=== PATIENT | male | born 1985 | race Caucasian/White ===

== ENCOUNTER 2018-09-06 18:30 | Observation (INO) | payer OTHER, SELFPAY ==
[2018-09-06] VITALS (7 sets, daily range): BP systolic 108–125; BP diastolic 65–81; PULSE 57–90; RESP 15–20; TEMP 36.6–36.7; O2SAT 97–100; BMI 31.1
--- NOTE | 2018-09-06 | PATH_ITS ---
[facility] Accession Number: [id number] . 01 Material submitted: . APPENDIX . 02 Diagnosis: Appendix: Acute appendicitis. [facility]/09/10/2018 . 02 Electronically signed: . Michael Johnson MD, Pathologist NPI- [id number] . 01 Gross description: . Received in formalin, labeled appendix, is an intact appendix (length-10.4 cm, diameter-1.0 cm) with maldonado-leyva smooth shiny serosa and attached mesoappendix (up to 2.7 cm in depth). The resection margin is received stapled. The lumen contains leyva-maldonado solid, soft material. The wall is up to 0.3 cm thick. No nodules, masses or lesions are identified. The resection margin is inked black. Section code: (A1) resection margin en face and four additional serial sections; (A2) four additional serial sections; (A3) one-half of the bivalved tip. ([id number]) /MRV . 02 Pathologist provided ICD-10: K35.80 . 02 CPT . 768698 Performed at: 01 [facility] [address] [place] [address], [place], [place] [id number] MD Rambo Victor MD Phone: [phone] Performed at: 02 [facility] [address] [place], [place] [id number] MD Belinda Quintana MD Phone: [phone]
[2018-09-06 18:52] LABS: Add Manual Diff / Slide Review NO; Basophils Absolute Auto 0 /uL (0-100); Basophils Percent Auto 0.4 % (0-2); Eosinophils Absolute Auto 100 /uL (0-450); Eosinophils Percent Auto 1.4 % (2-4); Hematocrit 47.6 % (41-53); Hemoglobin 16.3 g/dL (13.5-17.5); Lymphocytes Absolute Auto 1700 /uL (1100-4500); Mean Corpuscular HGB Conc 34.2 % (30-36); Mean Corpuscular Hemoglobin 29.7 PG (26-34); Mean Corpuscular Volume 86.7 fL (80-100); Monocytes Absolute Auto 900 /uL (0-900); Monocytes Percent Auto 8.7 % (3-14); Neutrophils Absolute Auto 7800 /uL (1500-7000); Neutrophils Percent Auto 73.5 % (50-75); Platelet Count 212 X10^3/uL (150-400); Red Blood Cell Count 5.48 X10^6/uL (4.5-5.9); Red Cell Distribution Width 12.1 % (11.6-14.8); White Blood Cell Count 10.6 X10^3/uL (4.5-11.0)
[2018-09-06 18:58] LABS: Prothrombin Time 11.2 SECONDS (10.1-12.7)
[2018-09-06 18:59] LABS: Alanine Aminotransferase 30 IU/L (21-72); Albumin 4.6 g/dL (3.5-5.0); Albumin Globulin Ratio 1.2 (1.0-2.8); Alkaline Phosphatase 62 U/L (38-126); Aspartate Aminotransferase 29 IU/L (17-59); Bilirubin Total 0.6 mg/dL (0.2-1.3); Blood Urea Nitrogen 17 mg/dL (9-20); Calcium 9.8 mg/dL (8.4-10.2); Carbon Dioxide 31 mmol/L (22-32); Chloride 101 mmol/L (98-107); Estimated Glomerular Filt Rate > 60.0 mL/min (>60); Globulin 3.8 g/dL (1.7-4.1); Glucose 100 mg/dL (70-100); HEMOLYSIS 16 (0-50); Lipase 45 U/L (23-300); Potassium 4.3 mmol/L (3.4-5.1); Sodium 141 mmol/L (137-145); Total Protein 8.4 g/dL (6.3-8.2)
[2018-09-06 19:01] LABS: PTT Partial Thromboplastin Tim 32 SECONDS (26.4-36.2)
--- NOTE | 2018-09-06 19:06 | ED.ABDPAIN ---
HPI - Abdominal Pain <Lilo Lyn PA-C - Last Filed: 09/06/18 21:32> General Chief Complaint: Abdominal Pain Stated Complaint: lower stomach pain Time Seen by Provider: 09/06/18 18:59 Source: patient Mode of arrival: ambulatory Limitations: no limitations History of Present Illness HPI narrative: This 33-year-old male comes in for evaluation of abdominal pain which started last night. He states that this started on his right side along with nausea. He vomited last night and also 4 or 5 times earlier today, no vomiting since this morning. He did eat dinner tonight and kept that down. He states nausea has improved, however pain has progressively worsened. He states he was trying to manage this at home, however when his son bumped his right lower abdomen with his foot and it caused Noah to double over, his encouraged him to come in. He states pain is worse with any movement, jarring, better with being still. He has not had any diarrhea and had a normal bowel movement today. He has not had any urinary symptoms. He has not had any recent illness, cough or respiratory symptoms. He states no fever at home but he does feel kind of warm and clammy. 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 He denies any diet change or known exposures Related Data Previous Rx's Medication Instructions Recorded fluoxetine 20 mg PO QDAY #90 cap 12/05/17 Allergies Allergy/AdvReac Type Severity Reaction Status Date / Time cat dander [CAT DANDER] Allergy Mild Verified 09/06/18 18:38 dog dander [DOG DANDER] Allergy Mild Verified 09/06/18 18:38 Review of Systems <Lilo Lyn PA-C - Last Filed: 09/06/18 21:32> Review of Systems ROS Unobtainable: All systems reviewed & are unremarkable except as noted in HPI and below Exam <PRITESH Badillo Last Filed: 09/06/18 21:32> Narrative Exam Narrative: GENERAL APPEARANCE: Patient sitting comfortably, in no distress. Skin is a bit clammy and warm HEENT: PERRL, EOMI, no scleral icterus, normal oropharynx NECK: Supple, no masses LUNGS: Clear to auscultation bilaterally. HEART: Rate and rhythm regular, normal S1 and S2, no S3 or S4. ABDOMEN: Soft, nondistended, bowel sounds present x 4 quadrants, no masses palpable, no hepatosplenomegaly. Exquisitely tender from the right lower quadrant midline to McBurney's point. He has rebound tenderness throughout these areas. Positive obturator sign. No CVAT EXTREMITIES: No edema, no cyanosis DERMATOLOGIC: No jaundice or exanthem NEUROLOGIC: Alert and oriented with normal speech and coordination Initial Vital Signs Initial Vital Signs: Vital Signs Temperature 98.1 F 09/06/18 18:38 Pulse Rate 90 09/06/18 18:38 Respiratory Rate 15 09/06/18 18:38 Blood Pressure 116/81 09/06/18 18:38 Pulse Oximetry 100 09/06/18 18:38 <James Hawkins MD - Last Filed: 09/07/18 03:43> Initial Vital Signs Initial Vital Signs: Vital Signs Temperature 98.1 F 09/06/18 18:38 Pulse Rate 90 09/06/18 18:38 Respiratory Rate 15 09/06/18 18:38 Blood Pressure 116/81 09/06/18 18:38 Pulse Oximetry 100 09/06/18 18:38 Course <Lilo Lyn PA-C - Last Filed: 09/06/18 21:32> Additional Information: I have reviewed findings with Dr. Naranjo who is on-call for surgery. He has been here to assess patient and will admit. He is coordinating surgery planned with Anesthesiology. Patient is currently feeling improved with pain medication and is resting comfortably at the time of transfer Orders Ordered: ED Orders 09/06/18 18:42 Complete Blood Count AUTO DIFF Stat Comprehensive Metabolic Panel Stat Lipase Stat Partial Thromboplastin Time Stat Prothrombin Time INR Stat 09/06/18 19:18 CT abdomen pelvis w con Stat 09/06/18 21:49 Education, smoking cessation ONGOING Acetaminophen (Tylenol) 650 mg PO Q6HR PRN PRN Reason: As Needed for Fever/Mild Pain Al Hydrox/Mg Hydrox/Simethicone (Maalox Plus) 30 ml PO Q6HR PRN PRN Reason: Dyspepsia Docusate Sodium (Colace) 100 mg PO BID [facility] Fluoxetine HCl (Prozac) 20 mg PO DAILY [facility] Last Admin: 09/07/18 00:38 Dose: Sodium Chloride (Normal Saline 0.9%) 1,000 mls @ 100 mls/hr IV CONT ROE Last Admin: 09/07/18 00:41 Dose: 100 mls/hr Magnesium Hydroxide (Milk Of Magnesia) 30 ml PO BEDTIME PRN PRN Reason: Constipation Morphine Sulfate (Morphine) 2 mg IV Q2HR PRN PRN Reason: Pain, Severe (7-10) Ondansetron HCl (Zofran) 4 mg IV Q6HR PRN PRN Reason: Nausea And Vomiting Oxycodone HCl (Percolone) 5 mg PO Q3HR PRN PRN Reason: Pain, Moderate (4-6) Sennosides (Senna) 8.6 mg PO BEDTIME ROE Discontinued Medications Bupivacaine HCl (Sensorcaine 0.5% (Pf)) 30 ml INJ NOW ONE Stop: 09/06/18 22:45 Last Admin: 09/06/18 22:45 Dose: 30 ml Hydromorphone HCl (Dilaudid) 1 mg IV NOW ONE Stop: 09/06/18 19:19 Last Admin: 09/06/18 19:57 Dose: 1 mg Sodium Chloride (Normal Saline 0.9%) 1,000 mls @ 100 mls/hr IV CONT ROE Last Infusion: 09/06/18 21:29 Dose: 0 mls/hr Admin: 09/06/18 20:24 Dose: 100 mls/hr Cefotetan Disodium/Dextrose (Cefotan) 2 gm in 50 mls @ 100 mls/hr IV NOW ONE Stop: 09/06/18 22:16 Last Infusion: 09/06/18 22:52 Dose: 0 mls/hr Admin: 09/06/18 22:51 Dose: 100 mls/hr Sodium Chloride (Normal Saline 0.9%) 1,000 mls @ 100 mls/hr IV CONT ROE Last Admin: 09/07/18 00:42 Dose: Lactated Ringer's (Lactated Ringers) 1,000 mls @ 42 mls/hr IV NOW ONE Stop: 09/07/18 21:38 Last Infusion: 09/06/18 23:41 Dose: 42 mls/hr Admin: 09/06/18 21:45 Dose: 42 mls/hr Ketorolac Tromethamine (Toradol) 30 mg IV NOW ONE Stop: 09/06/18 19:19 Last Admin: 09/06/18 19:56 Dose: 30 mg Lidocaine/Epinephrine (Xylocaine 1% W/Epi) 20 ml INJ NOW ONE Stop: 09/06/18 22:45 Last Admin: 09/06/18 22:44 Dose: 30 ml Ondansetron HCl (Zofran) 4 mg IV NOW ONE Stop: 09/06/18 19:19 Last Admin: 09/06/18 19:56 Dose: 4 mg Vital Signs - 8 hr 09/06/18 20:21 09/06/18 21:40 09/06/18 23:33 Temperature 98 F 98 F Pulse Rate 63 65 61 Respiratory Rate 16 20 16 Blood Pressure 118/71 110/65 Blood Pressure [Left Arm] 116/75 Pulse Oximetry 98 98 98 09/06/18 23:38 09/06/18 23:43 09/06/18 23:53 Temperature 98 F 98 F 97.8 F Pulse Rate 57 L 75 63 Respiratory Rate 15 17 16 Blood Pressure 115/68 108/66 125/76 Blood Pressure [Left Arm] Pulse Oximetry 98 97 98 09/07/18 00:03 09/07/18 00:14 Temperature 98 F 98.2 F Pulse Rate 63 71 Respiratory Rate 18 16 Blood Pressure 125/76 124/74 Blood Pressure [Left Arm] Pulse Oximetry 98 95 <James Hawkins MD - Last Filed: 09/07/18 03:43> Orders Ordered: ED Orders 09/06/18 18:42 Complete Blood Count AUTO DIFF Stat Comprehensive Metabolic Panel Stat Lipase Stat Partial Thromboplastin Time Stat Prothrombin Time INR Stat 09/06/18 19:18 CT abdomen pelvis w con Stat 09/06/18 21:49 Education, smoking cessation ONGOING Acetaminophen (Tylenol) 650 mg PO Q6HR PRN PRN Reason: As Needed for Fever/Mild Pain Al Hydrox/Mg Hydrox/Simethicone (Maalox Plus) 30 ml PO Q6HR PRN PRN Reason: Dyspepsia Docusate Sodium (Colace) 100 mg PO BID ROE Fluoxetine HCl (Prozac) 20 mg PO DAILY ROE Last Admin: 09/07/18 00:38 Dose: Sodium Chloride (Normal Saline 0.9%) 1,000 mls @ 100 mls/hr IV CONT ROE Last Admin: 09/07/18 00:41 Dose: 100 mls/hr Magnesium Hydroxide (Milk Of Magnesia) 30 ml PO BEDTIME PRN PRN Reason: Constipation Morphine Sulfate (Morphine) 2 mg IV Q2HR PRN PRN Reason: Pain, Severe (7-10) Ondansetron HCl (Zofran) 4 mg IV Q6HR PRN PRN Reason: Nausea And Vomiting Oxycodone HCl (Percolone) 5 mg PO Q3HR PRN PRN Reason: Pain, Moderate (4-6) Sennosides (Senna) 8.6 mg PO BEDTIME ROE Discontinued Medications Bupivacaine HCl (Sensorcaine 0.5% (Pf)) 30 ml INJ NOW ONE Stop: 09/06/18 22:45 Last Admin: 09/06/18 22:45 Dose: 30 ml Hydromorphone HCl (Dilaudid) 1 mg IV NOW ONE Stop: 09/06/18 19:19 Last Admin: 09/06/18 19:57 Dose: 1 mg Sodium Chloride (Normal Saline 0.9%) 1,000 mls @ 100 mls/hr IV CONT [facility] Last Infusion: 09/06/18 21:29 Dose: 0 mls/hr Admin: 09/06/18 20:24 Dose: 100 mls/hr Cefotetan Disodium/Dextrose (Cefotan) 2 gm in 50 mls @ 100 mls/hr IV NOW ONE Stop: 09/06/18 22:16 Last Infusion: 09/06/18 22:52 Dose: 0 mls/hr Admin: 09/06/18 22:51 Dose: 100 mls/hr Sodium Chloride (Normal Saline 0.9%) 1,000 mls @ 100 mls/hr IV CONT [facility] Last Admin: 09/07/18 00:42 Dose: Lactated Ringer's (Lactated Ringers) 1,000 mls @ 42 mls/hr IV NOW ONE Stop: 09/07/18 21:38 Last Infusion: 09/06/18 23:41 Dose: 42 mls/hr Admin: 09/06/18 21:45 Dose: 42 mls/hr Ketorolac Tromethamine (Toradol) 30 mg IV NOW ONE Stop: 09/06/18 19:19 Last Admin: 09/06/18 19:56 Dose: 30 mg Lidocaine/Epinephrine (Xylocaine 1% W/Epi) 20 ml INJ NOW ONE Stop: 09/06/18 22:45 Last Admin: 09/06/18 22:44 Dose: 30 ml Ondansetron HCl (Zofran) 4 mg IV NOW ONE Stop: 09/06/18 19:19 Last Admin: 09/06/18 19:56 Dose: 4 mg Vital Signs - 8 hr 09/06/18 20:21 09/06/18 21:40 09/06/18 23:33 Temperature 98 F 98 F Pulse Rate 63 65 61 Respiratory Rate 16 20 16 Blood Pressure 118/71 110/65 Blood Pressure [Left Arm] 116/75 Pulse Oximetry 98 98 98 09/06/18 23:38 09/06/18 23:43 09/06/18 23:53 Temperature 98 F 98 F 97.8 F Pulse Rate 57 L 75 63 Respiratory Rate 15 17 16 Blood Pressure 115/68 108/66 125/76 Blood Pressure [Left Arm] Pulse Oximetry 98 97 98 09/07/18 00:03 09/07/18 00:14 Temperature 98 F 98.2 F Pulse Rate 63 71 Respiratory Rate 18 16 Blood Pressure 125/76 124/74 Blood Pressure [Left Arm] Pulse Oximetry 98 95 MDM - Abdominal Pain <Lilo Lyn PA-C - Last Filed: 09/06/18 21:32> Lab Data Attestation: I reviewed the patient's lab results. Result diagrams: 09/06/18 18:42 09/06/18 18:42 Lab Results 09/06/18 09/06/18 09/06/18 Range/Units 18:42 18:42 18:42 WBC 10.6 (4.5-11.0) X10^3/uL RBC 5.48 (4.5-5.9) X10^6/uL Hgb 16.3 (13.5-17.5) g/dL Hct 47.6 (41-53) % MCV 86.7 (80-100) fL MCH 29.7 (26-34) PG MCHC 34.2 (30-36) % RDW 12.1 (11.6-14.8) % Plt Count 212 (150-400) X10^3/uL Neut % (Auto) 73.5 (50-75) % Lymph % (Auto) 16.0 L (25-40) % [place] % (Auto) 8.7 (3-14) % Eos % (Auto) 1.4 L (2-4) % Baso % (Auto) 0.4 (0-2) % Neut # (Auto) 7800 H (2409-4232) /uL Lymph # (Auto) 1700 (4825-3022) /uL [place] # (Auto) 900 (0-900) /uL Eos # (Auto) 100 (0-450) /uL Baso # (Auto) 0 (0-100) /uL PT 11.2 (10.1-12.7) SECONDS INR 1.0 (0.9-1.3) APTT 32 (26.4-36.2) SECONDS Sodium 141 (137-145) mmol/L Potassium 4.3 (3.4-5.1) mmol/L Chloride 101 (98-107) mmol/L Carbon Dioxide 31 (22-32) mmol/L BUN 17 (9-20) mg/dL Creatinine 1.00 (0.66-1.25) mg/dL Estimated GFR > 60.0 (>60) mL/min BUN/Creatinine Ratio 17.0 (6-22) Glucose 100 (70-100) mg/dL Calcium 9.8 (8.4-10.2) mg/dL Total Bilirubin 0.6 (0.2-1.3) mg/dL AST 29 (17-59) IU/L ALT 30 (21-72) IU/L Alkaline Phosphatase 62 (38-126) U/L Total Protein 8.4 H (6.3-8.2) g/dL Albumin 4.6 (3.5-5.0) g/dL Globulin 3.8 (1.7-4.1) g/dL Albumin/Globulin Ratio 1.2 (1.0-2.8) Lipase 45 (23-300) U/L Point of care testing: Urine Dip Bedside Urine Glucose Negative Bedside Urine Bilirubin - Negative Bedside Urine Ketone - Negative Urine Specific [place] 1.020 Bedside Urine Occult Blood - Negative Bedside Urine pH 6.0 Bedside Urine Protein - Negative Bedside Urine Urobilinogen - Negative Bedside Urine Nitrite - Negative Bedside Urine Leukocytes - Negative Esterase ECG Data Attestation: I personally reviewed and interpreted this ECG as follows: <James Hawkins MD - Last Filed: 09/07/18 03:43> Lab Data Lab Results 09/06/18 09/06/18 09/06/18 Range/Units 18:42 18:42 18:42 WBC 10.6 (4.5-11.0) X10^3/uL RBC 5.48 (4.5-5.9) X10^6/uL Hgb 16.3 (13.5-17.5) g/dL Hct 47.6 (41-53) % MCV 86.7 (80-100) fL MCH 29.7 (26-34) PG MCHC 34.2 (30-36) % RDW 12.1 (11.6-14.8) % Plt Count 212 (150-400) X10^3/uL Neut % (Auto) 73.5 (50-75) % Lymph % (Auto) 16.0 L (25-40) % [place] % (Auto) 8.7 (3-14) % Eos % (Auto) 1.4 L (2-4) % Baso % (Auto) 0.4 (0-2) % Neut # (Auto) 7800 H (9141-4366) /uL Lymph # (Auto) 1700 (7425-9566) /uL [place] # (Auto) 900 (0-900) /uL Eos # (Auto) 100 (0-450) /uL Baso # (Auto) 0 (0-100) /uL PT 11.2 (10.1-12.7) SECONDS INR 1.0 (0.9-1.3) APTT 32 (26.4-36.2) SECONDS Sodium 141 (137-145) mmol/L Potassium 4.3 (3.4-5.1) mmol/L Chloride 101 (98-107) mmol/L Carbon Dioxide 31 (22-32) mmol/L BUN 17 (9-20) mg/dL Creatinine 1.00 (0.66-1.25) mg/dL Estimated GFR > 60.0 (>60) mL/min BUN/Creatinine Ratio 17.0 (6-22) Glucose 100 (70-100) mg/dL Calcium 9.8 (8.4-10.2) mg/dL Total Bilirubin 0.6 (0.2-1.3) mg/dL AST 29 (17-59) IU/L ALT 30 (21-72) IU/L Alkaline Phosphatase 62 (38-126) U/L Total Protein 8.4 H (6.3-8.2) g/dL Albumin 4.6 (3.5-5.0) g/dL Globulin 3.8 (1.7-4.1) g/dL Albumin/Globulin Ratio 1.2 (1.0-2.8) Lipase 45 (23-300) U/L Point of care testing: Urine Dip Bedside Urine Glucose Negative Bedside Urine Bilirubin - Negative Bedside Urine Ketone - Negative Urine Specific [place] 1.020 Bedside Urine Occult Blood - Negative Bedside Urine pH 6.0 Bedside Urine Protein - Negative Bedside Urine Urobilinogen - Negative Bedside Urine Nitrite - Negative Bedside Urine Leukocytes - Negative Esterase Discharge Plan Departure Patient Disposition: Admitted as Observation Clinical Impression: Appendicitis Discharge Date/Time: 09/06/18 21:39 Interventions: ED Discharge Assessment Last Done: 09/06/18 21:37 Admit Date/Time: 09/06/18 20:57 Admit Provider: John Naranjo <James Hawkins MD - Last Filed: 09/07/18 03:43> Cosign ED Attending Cosignature Attestation: I was in the ER at the time of this patient's care. I was available for verbal consultation or to see the patient directly if needed. I agree with the PA's assessment and eventual disposition. The patient was admitted to surgery, Dr. Naranjo.
--- NOTE | 2018-09-06 19:18 | DI.CT.S_ITS ---
PROCEDURE: CT ABDOMEN PELVIS W CON INDICATIONS: RLQ and midline pain, rebound TECHNIQUE: After the administration of intravenous contrast, 5 mm thick sections acquired from the diaphragm to the symphysis. 5 mm coronal and sagittal reformats were acquired. For radiation dose reduction, the following was used: automated exposure control, adjustment of mA and/or kV according to patient size. COMPARISON: None. FINDINGS: Image quality: Excellent. ABDOMEN: Lung bases: Lung bases are clear. Heart size is normal. Solid organs: Liver is normal in size and enhancement. Gallbladder is unremarkable. Biliary system is non dilated. Pancreas enhances normally. Spleen is normal in size and enhancement. No adrenal nodules. Kidneys demonstrate normal size and enhancement, without hydronephrosis. Peritoneum and bowel: Bowel loops demonstrate normal wall thickness and caliber. The appendix is dilated measuring up to 1.2 cm in diameter. There is a [id number] amount of periappendiceal fat stranding. No periappendiceal free fluid or pneumoperitoneum. Of note, the appendix is retrocecal and located predominantly at midline. There are scattered sigmoid diverticula. No evidence for diverticulitis. No free fluid or air. Nodes and vessels: No retroperitoneal or mesenteric adenopathy by size criteria. Aorta and inferior vena cava are normal in size. Miscellaneous: No ventral hernias. PELVIS: Genitourinary: Bladder wall thickness is normal. Miscellaneous: No inguinal hernias or adenopathy. Bones: No suspicious bony lesions. No vertebral body compression fractures. IMPRESSION: 1. Early acute, non-perforated appendicitis. This finding was discussed with Gretchen ocampo PA-C at 8:04 PM on 09/06/18. 2. Diverticulosis. No acute diverticulitis. Dictated by: Giulia Xie M.D. on 09/06/2018 at 20:01 Approved by: Giulia Xie M.D. on 09/06/2018 at 20:05
--- NOTE | 2018-09-06 19:39 | ED_ITS ---
HPI - Abdominal Pain <Lilo Lyn PA-C - Last Filed: 09/06/18 21:32> General Chief Complaint: Abdominal Pain Stated Complaint: lower stomach pain Time Seen by Provider: 09/06/18 18:59 Source: patient Mode of arrival: ambulatory Limitations: no limitations History of Present Illness HPI narrative: This 33-year-old male comes in for evaluation of abdominal pain which started last night. He states that this started on his right side along with nausea. He vomited last night and also 4 or 5 times earlier today, no vomiting since this morning. He did eat dinner tonight and kept that down. He states nausea has improved, however pain has progressively worsened. He states he was trying to manage this at home, however when his son bumped his right lower abdomen with his foot and it caused Noah to double over, his encouraged him to come in. He states pain is worse with any movement, jarring, better with being still. He has not had any diarrhea and had a normal bowel movement today. He has not had any urinary symptoms. He has not had any recent illness, cough or respiratory symptoms. He states no fever at home but he does feel kind of warm and clammy. 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 He denies any diet change or known exposures Related Data Previous Rx's Medication Instructions Recorded fluoxetine 20 mg PO QDAY #90 cap 12/05/17 Allergies Allergy/AdvReac Type Severity Reaction Status Date / Time cat dander [CAT DANDER] Allergy Mild Verified 09/06/18 18:38 dog dander [DOG DANDER] Allergy Mild Verified 09/06/18 18:38 Review of Systems <Lilo Lyn PA-C - Last Filed: 09/06/18 21:32> Review of Systems ROS Unobtainable: All systems reviewed & are unremarkable except as noted in HPI and below Exam <PRITESH Badillo Last Filed: 09/06/18 21:32> Narrative Exam Narrative: GENERAL APPEARANCE: Patient sitting comfortably, in no distress. Skin is a bit clammy and warm HEENT: PERRL, EOMI, no scleral icterus, normal oropharynx NECK: Supple, no masses LUNGS: Clear to auscultation bilaterally. HEART: Rate and rhythm regular, normal S1 and S2, no S3 or S4. ABDOMEN: Soft, nondistended, bowel sounds present x 4 quadrants, no masses palpable, no hepatosplenomegaly. Exquisitely tender from the right lower quadrant midline to McBurney's point. He has rebound tenderness throughout these areas. Positive obturator sign. No CVAT EXTREMITIES: No edema, no cyanosis DERMATOLOGIC: No jaundice or exanthem NEUROLOGIC: Alert and oriented with normal speech and coordination Initial Vital Signs Initial Vital Signs: Vital Signs Temperature 98.1 F 09/06/18 18:38 Pulse Rate 90 09/06/18 18:38 Respiratory Rate 15 09/06/18 18:38 Blood Pressure 116/81 09/06/18 18:38 Pulse Oximetry 100 09/06/18 18:38 <James Hawkins MD - Last Filed: 09/07/18 03:43> Initial Vital Signs Initial Vital Signs: Vital Signs Temperature 98.1 F 09/06/18 18:38 Pulse Rate 90 09/06/18 18:38 Respiratory Rate 15 09/06/18 18:38 Blood Pressure 116/81 09/06/18 18:38 Pulse Oximetry 100 09/06/18 18:38 Course <Lilo Lyn PA-C - Last Filed: 09/06/18 21:32> Additional Information: I have reviewed findings with Dr. Naranjo who is on-call for surgery. He has been here to assess patient and will admit. He is coordinating surgery planned with Anesthesiology. Patient is currently feeling improved with pain medication and is resting comfortably at the time of transfer Orders Ordered: ED Orders 09/06/18 18:42 Complete Blood Count AUTO DIFF Stat Comprehensive Metabolic Panel Stat Lipase Stat Partial Thromboplastin Time Stat Prothrombin Time INR Stat 09/06/18 19:18 CT abdomen pelvis w con Stat 09/06/18 21:49 Education, smoking cessation ONGOING Acetaminophen (Tylenol) 650 mg PO Q6HR PRN PRN Reason: As Needed for Fever/Mild Pain Al Hydrox/Mg Hydrox/Simethicone (Maalox Plus) 30 ml PO Q6HR PRN PRN Reason: Dyspepsia Docusate Sodium (Colace) 100 mg PO BID [facility] Fluoxetine HCl (Prozac) 20 mg PO DAILY [facility] Last Admin: 09/07/18 00:38 Dose: Sodium Chloride (Normal Saline 0.9%) 1,000 mls @ 100 mls/hr IV CONT [facility]E Last Admin: 09/07/18 00:41 Dose: 100 mls/hr Magnesium Hydroxide (Milk Of Magnesia) 30 ml PO BEDTIME PRN PRN Reason: Constipation Morphine Sulfate (Morphine) 2 mg IV Q2HR PRN PRN Reason: Pain, Severe (7-10) Ondansetron HCl (Zofran) 4 mg IV Q6HR PRN PRN Reason: Nausea And Vomiting Oxycodone HCl (Percolone) 5 mg PO Q3HR PRN PRN Reason: Pain, Moderate (4-6) Sennosides (Senna) 8.6 mg PO BEDTIME ROE Discontinued Medications Bupivacaine HCl (Sensorcaine 0.5% (Pf)) 30 ml INJ NOW ONE Stop: 09/06/18 22:45 Last Admin: 09/06/18 22:45 Dose: 30 ml Hydromorphone HCl (Dilaudid) 1 mg IV NOW ONE Stop: 09/06/18 19:19 Last Admin: 09/06/18 19:57 Dose: 1 mg Sodium Chloride (Normal Saline 0.9%) 1,000 mls @ 100 mls/hr IV CONT ROE Last Infusion: 09/06/18 21:29 Dose: 0 mls/hr Admin: 09/06/18 20:24 Dose: 100 mls/hr Cefotetan Disodium/Dextrose (Cefotan) 2 gm in 50 mls @ 100 mls/hr IV NOW ONE Stop: 09/06/18 22:16 Last Infusion: 09/06/18 22:52 Dose: 0 mls/hr Admin: 09/06/18 22:51 Dose: 100 mls/hr Sodium Chloride (Normal Saline 0.9%) 1,000 mls @ 100 mls/hr IV CONT ROE Last Admin: 09/07/18 00:42 Dose: Lactated Ringer's (Lactated Ringers) 1,000 mls @ 42 mls/hr IV NOW ONE Stop: 09/07/18 21:38 Last Infusion: 09/06/18 23:41 Dose: 42 mls/hr Admin: 09/06/18 21:45 Dose: 42 mls/hr Ketorolac Tromethamine (Toradol) 30 mg IV NOW ONE Stop: 09/06/18 19:19 Last Admin: 09/06/18 19:56 Dose: 30 mg Lidocaine/Epinephrine (Xylocaine 1% W/Epi) 20 ml INJ NOW ONE Stop: 09/06/18 22:45 Last Admin: 09/06/18 22:44 Dose: 30 ml Ondansetron HCl (Zofran) 4 mg IV NOW ONE Stop: 09/06/18 19:19 Last Admin: 09/06/18 19:56 Dose: 4 mg Vital Signs - 8 hr 09/06/18 20:21 09/06/18 21:40 09/06/18 23:33 Temperature 98 F 98 F Pulse Rate 63 65 61 Respiratory Rate 16 20 16 Blood Pressure 118/71 110/65 Blood Pressure [Left Arm] 116/75 Pulse Oximetry 98 98 98 09/06/18 23:38 09/06/18 23:43 09/06/18 23:53 Temperature 98 F 98 F 97.8 F Pulse Rate 57 L 75 63 Respiratory Rate 15 17 16 Blood Pressure 115/68 108/66 125/76 Blood Pressure [Left Arm] Pulse Oximetry 98 97 98 09/07/18 00:03 09/07/18 00:14 Temperature 98 F 98.2 F Pulse Rate 63 71 Respiratory Rate 18 16 Blood Pressure 125/76 124/74 Blood Pressure [Left Arm] Pulse Oximetry 98 95 <James Hawkins MD - Last Filed: 09/07/18 03:43> Orders Ordered: ED Orders 09/06/18 18:42 Complete Blood Count AUTO DIFF Stat Comprehensive Metabolic Panel Stat Lipase Stat Partial Thromboplastin Time Stat Prothrombin Time INR Stat 09/06/18 19:18 CT abdomen pelvis w con Stat 09/06/18 21:49 Education, smoking cessation ONGOING Acetaminophen (Tylenol) 650 mg PO Q6HR PRN PRN Reason: As Needed for Fever/Mild Pain Al Hydrox/Mg Hydrox/Simethicone (Maalox Plus) 30 ml PO Q6HR PRN PRN Reason: Dyspepsia Docusate Sodium (Colace) 100 mg PO BID [facility] Fluoxetine HCl (Prozac) 20 mg PO DAILY [facility] Last Admin: 09/07/18 00:38 Dose: Sodium Chloride (Normal Saline 0.9%) 1,000 mls @ 100 mls/hr IV CONT ROE Last Admin: 09/07/18 00:41 Dose: 100 mls/hr Magnesium Hydroxide (Milk Of Magnesia) 30 ml PO BEDTIME PRN PRN Reason: Constipation Morphine Sulfate (Morphine) 2 mg IV Q2HR PRN PRN Reason: Pain, Severe (7-10) Ondansetron HCl (Zofran) 4 mg IV Q6HR PRN PRN Reason: Nausea And Vomiting Oxycodone HCl (Percolone) 5 mg PO Q3HR PRN PRN Reason: Pain, Moderate (4-6) Sennosides (Senna) 8.6 mg PO BEDTIME ROE Discontinued Medications Bupivacaine HCl (Sensorcaine 0.5% (Pf)) 30 ml INJ NOW ONE Stop: 09/06/18 22:45 Last Admin: 09/06/18 22:45 Dose: 30 ml Hydromorphone HCl (Dilaudid) 1 mg IV NOW ONE Stop: 09/06/18 19:19 Last Admin: 09/06/18 19:57 Dose: 1 mg Sodium Chloride (Normal Saline 0.9%) 1,000 mls @ 100 mls/hr IV CONT [facility] Last Infusion: 09/06/18 21:29 Dose: 0 mls/hr Admin: 09/06/18 20:24 Dose: 100 mls/hr Cefotetan Disodium/Dextrose (Cefotan) 2 gm in 50 mls @ 100 mls/hr IV NOW ONE Stop: 09/06/18 22:16 Last Infusion: 09/06/18 22:52 Dose: 0 mls/hr Admin: 09/06/18 22:51 Dose: 100 mls/hr Sodium Chloride (Normal Saline 0.9%) 1,000 mls @ 100 mls/hr IV CONT [facility] Last Admin: 09/07/18 00:42 Dose: Lactated Ringer's (Lactated Ringers) 1,000 mls @ 42 mls/hr IV NOW ONE Stop: 09/07/18 21:38 Last Infusion: 09/06/18 23:41 Dose: 42 mls/hr Admin: 09/06/18 21:45 Dose: 42 mls/hr Ketorolac Tromethamine (Toradol) 30 mg IV NOW ONE Stop: 09/06/18 19:19 Last Admin: 09/06/18 19:56 Dose: 30 mg Lidocaine/Epinephrine (Xylocaine 1% W/Epi) 20 ml INJ NOW ONE Stop: 09/06/18 22:45 Last Admin: 09/06/18 22:44 Dose: 30 ml Ondansetron HCl (Zofran) 4 mg IV NOW ONE Stop: 09/06/18 19:19 Last Admin: 09/06/18 19:56 Dose: 4 mg Vital Signs - 8 hr 09/06/18 20:21 09/06/18 21:40 09/06/18 23:33 Temperature 98 F 98 F Pulse Rate 63 65 61 Respiratory Rate 16 20 16 Blood Pressure 118/71 110/65 Blood Pressure [Left Arm] 116/75 Pulse Oximetry 98 98 98 09/06/18 23:38 09/06/18 23:43 09/06/18 23:53 Temperature 98 F 98 F 97.8 F Pulse Rate 57 L 75 63 Respiratory Rate 15 17 16 Blood Pressure 115/68 108/66 125/76 Blood Pressure [Left Arm] Pulse Oximetry 98 97 98 09/07/18 00:03 09/07/18 00:14 Temperature 98 F 98.2 F Pulse Rate 63 71 Respiratory Rate 18 16 Blood Pressure 125/76 124/74 Blood Pressure [Left Arm] Pulse Oximetry 98 95 MDM - Abdominal Pain <Lilo Lyn PA-C - Last Filed: 09/06/18 21:32> Lab Data Attestation: I reviewed the patient's lab results. Result diagrams: 09/06/18 18:42 09/06/18 18:42 Lab Results 09/06/18 09/06/18 09/06/18 Range/Units 18:42 18:42 18:42 WBC 10.6 (4.5-11.0) X10^3/uL RBC 5.48 (4.5-5.9) X10^6/uL Hgb 16.3 (13.5-17.5) g/dL Hct 47.6 (41-53) % MCV 86.7 (80-100) fL MCH 29.7 (26-34) PG MCHC 34.2 (30-36) % RDW 12.1 (11.6-14.8) % Plt Count 212 (150-400) X10^3/uL Neut % (Auto) 73.5 (50-75) % Lymph % (Auto) 16.0 L (25-40) % [place] % (Auto) 8.7 (3-14) % Eos % (Auto) 1.4 L (2-4) % Baso % (Auto) 0.4 (0-2) % Neut # (Auto) 7800 H (9476-3244) /uL Lymph # (Auto) 1700 (2882-4240) /uL [place] # (Auto) 900 (0-900) /uL Eos # (Auto) 100 (0-450) /uL Baso # (Auto) 0 (0-100) /uL PT 11.2 (10.1-12.7) SECONDS INR 1.0 (0.9-1.3) APTT 32 (26.4-36.2) SECONDS Sodium 141 (137-145) mmol/L Potassium 4.3 (3.4-5.1) mmol/L Chloride 101 (98-107) mmol/L Carbon Dioxide 31 (22-32) mmol/L BUN 17 (9-20) mg/dL Creatinine 1.00 (0.66-1.25) mg/dL Estimated GFR > 60.0 (>60) mL/min BUN/Creatinine Ratio 17.0 (6-22) Glucose 100 (70-100) mg/dL Calcium 9.8 (8.4-10.2) mg/dL Total Bilirubin 0.6 (0.2-1.3) mg/dL AST 29 (17-59) IU/L ALT 30 (21-72) IU/L Alkaline Phosphatase 62 (38-126) U/L Total Protein 8.4 H (6.3-8.2) g/dL Albumin 4.6 (3.5-5.0) g/dL Globulin 3.8 (1.7-4.1) g/dL Albumin/Globulin Ratio 1.2 (1.0-2.8) Lipase 45 (23-300) U/L Point of care testing: Urine Dip Bedside Urine Glucose Negative Bedside Urine Bilirubin - Negative Bedside Urine Ketone - Negative Urine Specific [place] 1.020 Bedside Urine Occult Blood - Negative Bedside Urine pH 6.0 Bedside Urine Protein - Negative Bedside Urine Urobilinogen - Negative Bedside Urine Nitrite - Negative Bedside Urine Leukocytes - Negative Esterase ECG Data Attestation: I personally reviewed and interpreted this ECG as follows: <James Hawkins MD - Last Filed: 09/07/18 03:43> Lab Data Lab Results 09/06/18 09/06/18 09/06/18 Range/Units 18:42 18:42 18:42 WBC 10.6 (4.5-11.0) X10^3/uL RBC 5.48 (4.5-5.9) X10^6/uL Hgb 16.3 (13.5-17.5) g/dL Hct 47.6 (41-53) % MCV 86.7 (80-100) fL MCH 29.7 (26-34) PG MCHC 34.2 (30-36) % RDW 12.1 (11.6-14.8) % Plt Count 212 (150-400) X10^3/uL Neut % (Auto) 73.5 (50-75) % Lymph % (Auto) 16.0 L (25-40) % [place] % (Auto) 8.7 (3-14) % Eos % (Auto) 1.4 L (2-4) % Baso % (Auto) 0.4 (0-2) % Neut # (Auto) 7800 H (6705-4792) /uL Lymph # (Auto) 1700 (8384-6619) /uL [place] # (Auto) 900 (0-900) /uL Eos # (Auto) 100 (0-450) /uL Baso # (Auto) 0 (0-100) /uL PT 11.2 (10.1-12.7) SECONDS INR 1.0 (0.9-1.3) APTT 32 (26.4-36.2) SECONDS Sodium 141 (137-145) mmol/L Potassium 4.3 (3.4-5.1) mmol/L Chloride 101 (98-107) mmol/L Carbon Dioxide 31 (22-32) mmol/L BUN 17 (9-20) mg/dL Creatinine 1.00 (0.66-1.25) mg/dL Estimated GFR > 60.0 (>60) mL/min BUN/Creatinine Ratio 17.0 (6-22) Glucose 100 (70-100) mg/dL Calcium 9.8 (8.4-10.2) mg/dL Total Bilirubin 0.6 (0.2-1.3) mg/dL AST 29 (17-59) IU/L ALT 30 (21-72) IU/L Alkaline Phosphatase 62 (38-126) U/L Total Protein 8.4 H (6.3-8.2) g/dL Albumin 4.6 (3.5-5.0) g/dL Globulin 3.8 (1.7-4.1) g/dL Albumin/Globulin Ratio 1.2 (1.0-2.8) Lipase 45 (23-300) U/L Point of care testing: Urine Dip Bedside Urine Glucose Negative Bedside Urine Bilirubin - Negative Bedside Urine Ketone - Negative Urine Specific [place] 1.020 Bedside Urine Occult Blood - Negative Bedside Urine pH 6.0 Bedside Urine Protein - Negative Bedside Urine Urobilinogen - Negative Bedside Urine Nitrite - Negative Bedside Urine Leukocytes - Negative Esterase Discharge Plan Departure Patient Disposition: Admitted as Observation Clinical Impression: Appendicitis Discharge Date/Time: 09/06/18 21:39 Interventions: ED Discharge Assessment Last Done: 09/06/18 21:37 Admit Date/Time: 09/06/18 20:57 Admit Provider: John Naranjo <James Hawkins MD - Last Filed: 09/07/18 03:43> Cosign ED Attending Cosignature Attestation: I was in the ER at the time of this patient's care. I was available for verbal consultation or to see the patient directly if needed. I agree with the PA's assessment and eventual disposition. The patient was admitted to surgery, Dr. Naranjo.
[2018-09-06] MEDS: KETOROLAC 60 MG/2 ML VIAL 30 MG IV (19:56)
[2018-09-06] MEDS: ONDANSETRON 4 MG/2 ML INJ IV (19:56)
[2018-09-06] MEDS: HYDROMORPHONE 1 MG INJ IV (19:57)
[2018-09-06] MEDS: SODIUM CHLORIDE 0.9% 1,000 ML 100 ML IV (20:24)
[2018-09-06] MEDS: LACTATED RINGERS 1,000 ML 42 ML IV (21:45)
--- NOTE | 2018-09-06 21:50 | PM.HP.1 ---
History of Present Illness Date Patient Seen: 09/06/18 Time Patient Seen: 21:50 Chief complaint: lower stomach pain Narrative: 33-year-old otherwise healthy male presents emergency department this evening with approximately 36 hr history of progressive abdominal pain. States that he had some vague abdominal pain yesterday which became progressively severe and localized to the right lower quadrant. Throughout the course of the day today the pain has been persistent without radiation to the back or groin. The only exacerbating activity is when he coughs or walks for prolonged distance around the house. No subjective fever chills. No nausea or vomiting. He last ate several hours ago but felt relatively full early. He otherwise had normal bowel function yesterday. No difficulties with dysuria or hematuria. Prior to his presentation emergency department he states that his infant son kicked the right lower quadrant region of his abdomen while he was holding him which caused him severe discomfort. Patient History Medical History Moderate episode of recurrent major depressive disorder (10/24/17) CORONA (obstructive sleep apnea) (Chronic 04/29/15) Surgical History No history of previous surgery (Resolved 10/24/17) Family & Social History Family History: Reviewed 09/06/18 by John Naranjo MD Social History: household members spouse Safety & Behavioral: Feels Safe in Current Yes Environment Been Physically Hurt or No Threatened By a Person Tobacco & Substance use: Smoking Status Never smoker alcohol intake current Meds Home Medications Medication Instructions Recorded Confirmed Type fluoxetine 20 mg PO QDAY #90 cap 12/05/17 08/09/18 Rx Allergies Allergy/AdvReac Type Severity Reaction Status Date / Time cat dander [CAT DANDER] Allergy Mild Verified 09/06/18 18:38 dog dander [DOG DANDER] Allergy Mild Verified 09/06/18 18:38 Review of Systems Review of Systems All systems reviewed & are unremarkable except as noted in HPI and below Exam Vital Signs (past 8 hours): - 09/06/18 18:38 09/06/18 20:21 09/06/18 21:40 Temperature 98.1 F 98 F Pulse Rate 90 63 65 Respiratory Rate 15 16 20 Blood Pressure 116/81 118/71 Blood Pressure [Left Arm] 116/75 Pulse Oximetry 100 98 98 Oxygen Delivery Method Room Air Narrative Exam Narrative: Well-nourished well-developed male in no acute distress. He appears mildly uncomfortable lying supine on the gurney. Alert oriented x3. and child are at the bedside during my visit. Sclera nonicteric Regular rate rhythm No wheezes Abdomen is soft and nondistended. However, he is focally tender in the right lower quadrant near McBurney's point with obvious involuntary guarding examination. I appreciate no masses however. No ascites. Extremities show no clubbing or cyanosis Objective Labs Result Diagrams: 09/06/18 18:42 09/06/18 18:42 Labs: Laboratory Results - last 24 hr 09/06/18 09/06/18 09/06/18 18:42 18:42 18:42 WBC 10.6 RBC 5.48 Hgb 16.3 Hct 47.6 MCV 86.7 MCH 29.7 MCHC 34.2 RDW 12.1 Plt Count 212 Neut % (Auto) 73.5 Lymph % (Auto) 16.0 L [place] % (Auto) 8.7 Eos % (Auto) 1.4 L Baso % (Auto) 0.4 Neut # (Auto) 7800 H Lymph # (Auto) 1700 [place] # (Auto) 900 Eos # (Auto) 100 Baso # (Auto) 0 PT 11.2 INR 1.0 APTT 32 Sodium 141 Potassium 4.3 Chloride 101 Carbon Dioxide 31 BUN 17 Creatinine 1.00 Estimated GFR > 60.0 BUN/Creatinine Ratio 17.0 Glucose 100 Calcium 9.8 Total Bilirubin 0.6 AST 29 ALT 30 Alkaline Phosphatase 62 Total Protein 8.4 H Albumin 4.6 Globulin 3.8 Albumin/Globulin Ratio 1.2 Lipase 45 I have personally reviewed his CT scan of the abdomen and pelvis done in the emergency department which confirms pericecal inflammation and a enlarged appendix consistent with acute appendicitis. No evidence of free fluid or abscess. No other abnormalities. Assessment & Plan Plan: Assessment/Plan Narrative: 33-year-old male with right lower quadrant abdominal pain that has been progressive in nature. His examination, evaluation, and CT scan are all consistent with acute appendicitis. I do not suspect rupture however. Nonetheless I have recommended urgent laparoscopic appendectomy this evening. Technical details of the procedure were discussed. Risks, benefits, alternatives were explained. Risks including but not limited to anesthesia, bleeding, infection, postoperative abscess, pain, scars, need to convert to open procedure, need for drains, normal appendix, bladder injury, small-bowel injury, colon injury, appendiceal stump leak, gastric injury, major vascular injury, ureter injury, and need for further procedures or major abdominal surgery were all discussed at length. All questions were answered to his satisfaction, and he voiced understanding. Consent was placed on the chart. Orders were written. We will proceed as above.
--- NOTE | 2018-09-06 22:05 | PM.PREOP ---
Pre-operative Note Interval Note History & Physical reviewed/Exam performed by Physician: Yes Changes to H&P: No H&P completed within 30 days and has changed as indicated here:: Patient seen and examined in the preoperative area. His history and physical examination has not changed obviously within the last 30 min. Proceed with laparoscopic appendectomy this evening as planned.
--- NOTE | 2018-09-06 22:39 | SUR.OPER ---
Supine on padded OR bed, head on pillow, arms secured on padded arm boards at <90 degrees abduction, legs uncrossed, safety belt at thigh, tape over blanket over lower legs.
[2018-09-06] MEDS: LIDOCAINE 1% W/EPI INJ 20 ML INJ (22:44)
[2018-09-06] MEDS: BUPIVACAINE 0.5% (PF) VIAL 30 ML INJ (22:45)
[2018-09-06] MEDS: CEFOTETAN 2 GM/50 ML PIGGYBACK IV (22:51)
--- NOTE | 2018-09-06 23:46 | P.OP_ITS ---
Operative Date/Time/Diagnoses Date of procedure: 09/06/18 Time of procedure: 23:38 Pre-op diagnosis: Acute appendicitis Post-op diagnosis: other (Acute suppurative appendicitis without rupture) Procedure & Clinicians Procedure: Laparoscopic appendectomy Same procedure as scheduled: Yes Indications: 33-year-old male who presented with progressive right lower quadrant abdominal pain. Examination and evaluation were consistent with appendicitis. Laparoscopic appendectomy was recommended. Surgeon: John Naranjo Click Yes if Unassisted: Yes Anesthesia Type: General Operative Notes Findings: 1. Acutely inflamed suppurative appendix without evidence of rupture or abscess 2. Otherwise grossly normal terminal ileum, small bowel, colon, liver, gallbladder, stomach, and omentum within the limits of laparoscopic visualization Closure Type: primary Specimen(s): other (Appendix) Implants & Drains: None Estimated Blood Loss (mL): 25 Blood products transfused: none Procedure in detail: After obtaining informed consent the patient was brought to the operating room placed supine on the table. After satisfactory induction of anesthesia a Freeman catheter was inserted to decompress the urinary bladder. Abdomen was prepped and draped in usual sterile fashion. SCOAP time out was performed per standard protocol. A 1: 1 mixture 1% lidocaine with 1:100,000 epinephrine and 0.5% plain Marcaine was injected in the skin and subcutaneous tissue at the superior aspect of the umbilicus for postoperative analgesia. Vertical midline incision was created with 11 scalpel blade at the superior aspect of the umbilicus for distance of approximately 3 cm. Blunt dissection revealed the rectus fascia which was divided in the midline with 11 scalpel blade. Edges of the fascia was secured with Cass clamps. Fascia was secured superiorly and inferiorly with interrupted 0 Vicryl suture. Underlying peritoneum was entered under direct visualization with a Terra clamp. Blunt 12 mm Langley trocar was inserted and the abdomen was insufflated with carbon dioxide. Visual exploration of the abdomen was then performed using a 5 mm 30 degree laparoscope. Findings are as above. Two individual additional 5 mm trocars were placed in the lower midline and left lower quadrant respectively. Varghese graspers were used to manipulate the terminal ileum and cecum in order to identify the base of the appendix. The appendix was in a somewhat retrocecal position extending medially under the ileocecal valve. Appendix was adherent to the retroperitoneum by normal peritoneal bands that were divided sharply with laparoscopic scissors. The appendix was liberated and elevated into the operative field where it could be fully visualized. Again, findings are as above. Meticulous blunt dissection using a [place] dissector was then performed to create an avascular window between the base of the appendix at its junction with the cecum and the mesoappendix. A single application of the Endo- REANNA 45 mm laparoscopic stapler using a vascular load was then employed to divide the mesoappendix. Great care was taken to avoid injury to adjacent structures. Hemostasis was verified. In a similar fashion a 2nd application of the Endo-REANNA 45 mm stapler with a standard tissue load was deployed to divide the appendix at its junction with the cecum. Specimen was placed in an endo- pouch and retrieved through the umbilical incision then sent for permanent section. Meticulous examination of the staple lines showed hemostasis and no evidence of leakage. Right lower quadrant was irrigated with copious amount sterile saline solution which was suctioned from the abdomen and noted to be clear. Again the staple lines were examined and noted to be hemostatic without evidence of any leakage. Adjacent bowel was completely normal without evidence of inflammation, disease, or injury. Instruments and trocars were then removed and hemostasis verified. Carbon dioxide was evacuated. Fascia at the umbilical site was closed with the previously placed 0 Vicryl suture. Skin at all 3 incisions was then closed in a running subcuticular fashion with 4 0 Monocryl suture. Dermal adhesive was applied. Freeman catheter was removed and discarded. Anesthesia was reversed and the patient extubated in the operating room. He was taken recovery in stable condition. Complications: none Condition: stable Disposition: PACU Plan for aftercare: 1. Return to regular surgical floor for ongoing convalescence
[2018-09-07 00:03] VITALS: BP 125/76; PULSE 63; RESP 18; TEMP 36.6; O2SAT 98
[2018-09-07 00:14] VITALS: BP 124/74; PULSE 71; RESP 16; TEMP 36.8; O2SAT 95
--- NOTE | 2018-09-07 00:18 | SUR.PHASEI ---
pt to rm 221 via bed . at bedside. bedside report to acute care RN. pt has stable vital signs and alert and oriented with 3 abd sites clean and intact
[2018-09-07 00:21] VITALS: BMI 31.1
[2018-09-07] MEDS: SODIUM CHLORIDE 0.9% 1,000 ML 100 ML IV (00:41)
[2018-09-07 04:40] VITALS: BP 118/48; PULSE 83; RESP 16; TEMP 36.8; O2SAT 95
[2018-09-07] MEDS: OXYCODONE IR 5 MG TABLET PO ×2 (04:56→09:10)
[2018-09-07 08:00] VITALS: BP 116/68; PULSE 78; RESP 18; TEMP 36.3; O2SAT 96
[2018-09-07] MEDS: DOCUSATE 100 MG CAPSULE PO (09:08)
[2018-09-07 10:44] VITALS: O2SAT 96
--- NOTE | 2018-09-07 11:27 | P.DS_ITS ---
History of Present Illness Date Patient Seen: 09/07/18 Time Patient Seen: 11:23 Chief complaint: lower stomach pain Narrative: 33-year-old otherwise healthy male presents emergency department this evening with approximately 36 hr history of progressive abdominal pain. States that he had some vague abdominal pain yesterday which became progressively severe and localized to the right lower quadrant. Throughout the course of the day today the pain has been persistent without radiation to the back or groin. The only exacerbating activity is when he coughs or walks for prolonged distance around the house. No subjective fever chills. No nausea or vomiting. He last ate several hours ago but felt relatively full early. He otherwise had normal bowel function yesterday. No difficulties with dysuria or hematuria. Prior to his presentation emergency department he states that his infant son kicked the right lower quadrant region of his abdomen while he was holding him which caused him severe discomfort. Discharge Providers Date of admission: 09/06/18 20:57 Primary care physician: Karl Benitez MD Discharge provider: John Naranjo MD Discharge Date: 09/07/18 Summary Discharge Diagnosis: 1. Acute suppurative appendicitis 2. Laparoscopic appendectomy September 06, 2018 3. Depression, chronic Hospital Course: Patient was taken from the emergency department to the operating room for laparoscopic appendectomy which he tolerated without incident. Postoperatively he was admitted to the regular surgical floor for observation overnight. While there he remained afebrile and hemodynamically stable. He is tolerating a regular diet. He is ambulating without difficulty on postoperative day 1. He has had return of normal spontaneous bladder and bowel function. His pain is well controlled with oral analgesics. His incisions are healing nicely without evidence of any acute complications. Because of his stable condition he is discharged home. He does not require antibiotics as an outpatient. He will follow up in the surgery clinic in approximately 10 days. However, he has been counseled to call or return sooner for fever, chills, wound drainage, progressive erythema, progressive pain, inability to tolerate a diet, or inability to move his bowels. All questions were answered to his satisfaction, and he voiced understanding. Status at Discharge Cognitive/behavioral status at discharge: Alert, oriented x3 Functional status at discharge: independent ambulation Overall status at discharge: patient is progressing back to baseline Time Spent with Patient Less than 30 minutes Exam Vital Signs (past 8 hours): - 09/07/18 04:40 09/07/18 08:00 09/07/18 10:44 Temperature 98.2 F 97.4 F L Pulse Rate 83 78 Respiratory Rate 16 18 Blood Pressure 118/48 L 116/68 Pulse Oximetry 95 96 96 Oxygen Delivery Method Room Air Oxygen Flow Rate 0 Narrative Exam Narrative: Well-nourished well-developed male in no acute distress. Alert oriented x3. He is ambulating about the room and brushing his teeth at the time of my visit this morning. He has just finished a full regular breakfast without issue. No fevers. No tachycardia. Blood pressure normal. Good urine output Regular rate rhythm No crackles or wheezes Abdomen soft, nondistended, no masses. Wounds are clean, dry, and intact without erythema or significant ecchymosis. He is appropriately tender without guarding or rebound. His initial preoperative symptoms of right lower quadrant abdominal pain of completely resolved. Extremities show no clubbing, cyanosis, or edema Objective Labs Result Diagrams: 09/06/18 18:42 09/06/18 18:42 Labs: Laboratory Results - last 24 hr 09/06/18 09/06/18 09/06/18 18:42 18:42 18:42 WBC 10.6 RBC 5.48 Hgb 16.3 Hct 47.6 MCV 86.7 MCH 29.7 MCHC 34.2 RDW 12.1 Plt Count 212 Neut % (Auto) 73.5 Lymph % (Auto) 16.0 L [place] % (Auto) 8.7 Eos % (Auto) 1.4 L Baso % (Auto) 0.4 Neut # (Auto) 7800 H Lymph # (Auto) 1700 [place] # (Auto) 900 Eos # (Auto) 100 Baso # (Auto) 0 PT 11.2 INR 1.0 APTT 32 Sodium 141 Potassium 4.3 Chloride 101 Carbon Dioxide 31 BUN 17 Creatinine 1.00 Estimated GFR > 60.0 BUN/Creatinine Ratio 17.0 Glucose 100 Calcium 9.8 Total Bilirubin 0.6 AST 29 ALT 30 Alkaline Phosphatase 62 Total Protein 8.4 H Albumin 4.6 Globulin 3.8 Albumin/Globulin Ratio 1.2 Lipase 45 Discharge Plan Discharge Plan Patient Disposition: Home Discharge Med Rec/Prescriptions Prescriptions: New sennosides [senna] 8.6 mg Tablet 8.6 mg PO BEDTIME Qty: 10 RF: 1 docusate sodium 100 mg Capsule 100 mg PO BID Qty: 20 RF: 0 oxycodone 5 mg Tablet 5 mg PO Q3HR PRN (Reason: Pain, Moderate (4-6)) Qty: 30 RF: 0 Continue fluoxetine 20 MG capsule 20 mg PO QDAY Qty: 90 RF: 3 Follow up/Referrals: John Naranjo MD [Physician] - 09/17/18 12:00 am (Please call office for exact appointment time if not already scheduled) Provider Discharge Instructions Diet: Diet as Tolerated Activity: No driving while taking opioid pain medication May ride in vehicle May walk as much as desired May climb stairs No lifting more than 20 lb until further notice Other treatments: May shower Skin/Wound/Dressing Care Report to your healthcare provider any signs of infection, such as:: chills, fever, night sweats, increased pain, unusual drainage and unusual redness Dressing: No dressing necessary Other wound treatment: Do not soak incisions in bathtub or pool for 2 weeks Discharge Data Primary Care Provider: Karl Benitez Attending Provider: John Naranjo Admit Date/Time: 09/06/18 20:57 Quality VTE Deep Vein Thrombosis/Pulmonary Embolism Present on Admission: No
--- NOTE | 2018-09-07 11:55 | PC.NURSE ---
IV removed, Pt dressed and packed up to go and Spouse is here to drive him home. Went over d/c instructions with Pt and Spouse, discussed d/c meds, time of last dose, reminded Pt to drink fluids to prevent constipation. Reminded Pt to restrict lifting to less than 20 pounds. Pt out via w/c by [employer] to POV with Spouse and all belongings.
== END 2018-09-07 11:59 | disposition home or self-care (01) ==
LOC: ED 18:59 → AC 20:58
PROVIDERS: Emergency Medicine; Admitting Provider Surgery; Emergency Provider Internal Medicine; PCP Family Medicine; Visit Provider Surgery
PROC: 0DTJ4ZZ Resection of Appendix, Percutaneous Endoscopic Approach (ICD-10-PCS; CPT 44970; principal; 2018-09-06 22:00)
DX: K35.80 Unspecified acute appendicitis (principal); R10.31 Right lower quadrant pain; G47.33 Obstructive sleep apnea (adult) (pediatric); F33.41 Major depressive disorder, recurrent, in partial remission
CPT/HCPCS: 44970; 36591; 74177; 80053; 81003; 83690; 85025; 85610; 85730; 93005; 93010; 96361; 96374; 96375; 99220; 99283; 99285; G0378; J0330; J1100; J1170; J1885; J2405; J2704; J2765; J3010; Q9967

== ENCOUNTER 2018-09-09 17:34 | Emergency (ER) | payer OTHER, SELFPAY ==
[2018-09-09 17:42] VITALS: BP 151/107; PULSE 61; RESP 20; TEMP 36.4; O2SAT 95; BMI 31.8
--- NOTE | 2018-09-09 18:04 | PC.NURSE ---
s\p appendectomy 2 days ago, spouse reporting he is lethargic, pt reports, nausea,dizziness and decrease in appetite. normal bm today. ?fever. pt has been taking oxycodone, last dose at 3pm. incision site red with swelling and echymosis. pt guarding, with tenderness with palpation. pt reports no issue with voiding.
--- NOTE | 2018-09-09 18:17 | ED_ITS ---
HPI - Abdominal Pain General Chief Complaint: Abdominal Pain Stated Complaint: Thinks incisions from surgery infected Time Seen by Provider: 09/09/18 17:48 Source: patient Mode of arrival: ambulatory Limitations: no limitations History of Present Illness HPI narrative: The patient was seen here 3 days ago, and admitted for appendicitis. He underwent appendectomy and was discharged home the next day. He is here now with lethargy, and overall not feeling well. He has abdominal pain. He is eating and drinking, but appetite is decreased. He has regular bowel puts a normal urine output. He has no fever. He has no cough or congestion. There is no back pain and no urinary symptoms. He took oxycodone about 4:00 p.m., he has used the oxycodone intermittently for abdominal pain. He is ambulatory without increased pain. He has a large area of discoloration on his abdomen. The patient suggested he is here partially because of his ' s insistence, stating he does not look well. He does feel fatigued. Related Data Previous Rx's Medication Instructions Recorded fluoxetine 20 mg PO QDAY #90 cap 12/05/17 docusate sodium 100 mg PO BID #20 cap 09/07/18 oxycodone 5 mg PO Q3HR PRN #30 tab 09/07/18 sennosides [senna] 8.6 mg PO BEDTIME #10 tab 09/07/18 Allergies Allergy/AdvReac Type Severity Reaction Status Date / Time cat dander [CAT DANDER] Allergy Mild Verified 09/06/18 18:38 dog dander [DOG DANDER] Allergy Mild Verified 09/06/18 18:38 Review of Systems Review of Systems ROS Unobtainable: All systems reviewed & are unremarkable except as noted in HPI and below Constitutional Denies chills, Denies fever(s), Denies lethargy and Denies weakness Eyes Reports other (No icterus) ENT Ears, Nose, Mouth, and Throat: Denies mouth pain, Denies neck pain and Denies sore throat Cardiovascular Denies chest pain, Denies lightheadedness, Denies palpitations, Denies dyspnea, Denies dyspnea on exertion and Denies orthopnea Respiratory Denies cough, Denies dyspnea, Denies dyspnea on exertion and Denies wheezing Gastrointestinal Gastrointestinal: Reports as per HPI, Reports abdominal pain, Denies change in bowel habits, Denies diarrhea, Denies nausea and Denies vomiting Genitourinary Denies dysuria and Denies testicular pain Musculoskeletal Denies back pain and Denies neck pain Neurologic Denies weakness Endocrine Denies palpitations Allergic/Immunologic Denies wheezing [facility] Medical History Moderate episode of recurrent major depressive disorder (10/24/17) [place] (obstructive sleep apnea) (Chronic 04/29/15) Surgical History S/P laparoscopic appendectomy (Acute) No history of previous surgery (Resolved 10/24/17) Family History Mother Diabetes mellitus Fibromyalgia Social History marital status: household members: spouse Smoking Status: Never smoker alcohol intake: current substance use type: does not use Exam Initial Vital Signs Initial Vital Signs: Vital Signs Temperature 97.5 F L 09/09/18 17:42 Pulse Rate 61 09/09/18 17:42 Respiratory Rate 20 09/09/18 17:42 Blood Pressure 151/107 H 09/09/18 17:42 Pulse Oximetry 95 09/09/18 17:42 Const General: cooperative and well developed Nutritional Appearance: well nourished Orientation: alert, awake, oriented x3 and not confused [facility] Head: normocephalic and atraumatic Face and sinus: face symmetric Mouth: oral mucosae normal and moist mucous membranes Throat: posterior oropharynx normal, tonsils normal and uvula midline Eyes Conjunctivae: conjunctivae normal Neck Neck: full ROM and No lymphadenopathy Chest Chest: No tenderness Resp Effort & Inspection: normal respiratory effort, able to speak in complete sentences, no respiratory distress and no use of accessory muscles Auscultation: clear to auscultation bilaterally, no rales, no rhonchi and no wheezes Cardio Rate: regular rate Rhythm: regular rhythm Heart Sounds: no click, no gallops, no murmurs and no rubs Pulses: normal peripheral pulses GI Inspection: abdominal wall ecchymosis (At the operative sites, no evidence of infection) and non-distended Palpation: soft, no hepatosplenomegaly, guarding (At the operative sites.) and No pulsatile mass Auscultation: normal bowel sounds Skin General: no rashes or lesions noted, No jaundice and No petechiae Neuro General: alert, oriented x3, gait normal and no focal motor deficits Speech: speech normal Course Orders Ordered: ED Orders 09/09/18 18:00 Complete Blood Count AUTO DIFF Stat Comprehensive Metabolic Panel Stat Lactate (Lactic Acid) Stat Lipase Stat Partial Thromboplastin Time Stat Prothrombin Time INR Stat 09/09/18 18:13 EKG-12 Lead Stat Discontinued Medications Sodium Chloride (Normal Saline 0.9%) 1,000 mls @ 1,000 mls/hr IV BOLUS ONE Stop: 09/09/18 19:23 Last Admin: 09/09/18 18:50 Dose: 1,000 mls/hr Ketorolac Tromethamine (Toradol) 30 mg IV NOW ONE Stop: 09/09/18 19:32 Last Admin: 09/09/18 19:45 Dose: 30 mg Vital Signs - 8 hr 09/09/18 17:42 09/09/18 20:00 09/09/18 20:43 Temperature 97.5 F L Pulse Rate 61 56 L 61 Respiratory Rate 20 16 Blood Pressure 151/107 H 129/72 Blood Pressure [Left Arm] 120/72 Pulse Oximetry 95 95 98 MDM - Abdominal Pain Lab Data Result diagrams: 09/09/18 18:00 09/09/18 18:00 Lab Results 09/09/18 09/09/18 09/09/18 Range/Units 18:00 18:00 18:00 WBC 7.6 (4.5-11.0) X10^3/uL RBC 5.11 (4.5-5.9) X10^6/uL Hgb 14.9 (13.5-17.5) g/dL Hct 44.2 (41-53) % MCV 86.4 (80-100) fL MCH 29.2 (26-34) PG MCHC 33.7 (30-36) % RDW 12.0 (11.6-14.8) % Plt Count 195 (150-400) X10^3/uL Neut % (Auto) 71.2 (50-75) % Lymph % (Auto) 18.5 L (25-40) % [place] % (Auto) 7.9 (3-14) % Eos % (Auto) 2.3 (2-4) % Baso % (Auto) 0.1 (0-2) % Neut # (Auto) 5400 (5093-0829) /uL Lymph # (Auto) 1400 (1240-5028) /uL [place] # (Auto) 600 (0-900) /uL Eos # (Auto) 200 (0-450) /uL Baso # (Auto) 0 (0-100) /uL PT 11.3 (10.1-12.7) SECONDS INR 1.0 (0.9-1.3) APTT 31 (26.4-36.2) SECONDS Sodium 139 (137-145) mmol/L Potassium 4.1 (3.4-5.1) mmol/L Chloride 101 (98-107) mmol/L Carbon Dioxide 29 (22-32) mmol/L BUN 15 (9-20) mg/dL Creatinine 0.90 (0.66-1.25) mg/dL Estimated GFR > 60.0 (>60) mL/min BUN/Creatinine Ratio 16.7 (6-22) Glucose 99 (70-100) mg/dL Lactate (0.7-2.1) mmol/L Calcium 9.2 (8.4-10.2) mg/dL Total Bilirubin 0.3 (0.2-1.3) mg/dL AST 28 (17-59) IU/L ALT 42 (21-72) IU/L Alkaline Phosphatase 61 (38-126) U/L Total Protein 7.6 (6.3-8.2) g/dL Albumin 4.2 (3.5-5.0) g/dL Globulin 3.4 (1.7-4.1) g/dL Albumin/Globulin Ratio 1.2 (1.0-2.8) Lipase 32 (23-300) U/L 09/09/18 Range/Units 18:00 WBC (4.5-11.0) X10^3/uL RBC (4.5-5.9) X10^6/uL Hgb (13.5-17.5) g/dL Hct (41-53) % MCV (80-100) fL MCH (26-34) PG MCHC (30-36) % RDW (11.6-14.8) % Plt Count (150-400) X10^3/uL Neut % (Auto) (50-75) % Lymph % (Auto) (25-40) % [place] % (Auto) (3-14) % Eos % (Auto) (2-4) % Baso % (Auto) (0-2) % Neut # (Auto) (6998-7518) /uL Lymph # (Auto) (8805-5178) /uL [place] # (Auto) (0-900) /uL Eos # (Auto) (0-450) /uL Baso # (Auto) (0-100) /uL PT (10.1-12.7) SECONDS INR (0.9-1.3) APTT (26.4-36.2) SECONDS Sodium (137-145) mmol/L Potassium (3.4-5.1) mmol/L Chloride (98-107) mmol/L Carbon Dioxide (22-32) mmol/L BUN (9-20) mg/dL Creatinine (0.66-1.25) mg/dL Estimated GFR (>60) mL/min BUN/Creatinine Ratio (6-22) Glucose (70-100) mg/dL Lactate 0.9 (0.7-2.1) mmol/L Calcium (8.4-10.2) mg/dL Total Bilirubin (0.2-1.3) mg/dL AST (17-59) IU/L ALT (21-72) IU/L Alkaline Phosphatase (38-126) U/L Total Protein (6.3-8.2) g/dL Albumin (3.5-5.0) g/dL Globulin (1.7-4.1) g/dL Albumin/Globulin Ratio (1.0-2.8) Lipase (23-300) U/L Point of care testing: Urine Dip Bedside Urine Glucose Negative Bedside Urine Bilirubin - Negative Bedside Urine Ketone - Negative Urine Specific [place] 1.015 Bedside Urine Occult Blood - Negative Bedside Urine pH 7.0 Bedside Urine Protein - Negative Bedside Urine Urobilinogen - Negative Bedside Urine Nitrite - Negative Bedside Urine Leukocytes - Negative Esterase ECG Data Attestation: I personally reviewed and interpreted this ECG as follows: (Sinus bradycardia rate 55 bpm. Normal intervals. No ectopy. No acute ST T wave findings. normal study.) MDM Narrative Medical decision making narrative: The patient has improved with IV fluids, and IV Toradol. Labs are reviewed from him. He feels significant better given the rest and fluids. He is hungry. He has a good appetite. I advised him to drink plenty of fluids, walking stress. Return here for increasing pain or fever. Contact his surgeon if symptoms are worsening. Discharge Plan Departure Patient Disposition: Home Clinical Impression: Postoperative abdominal pain Discharge Date/Time: 09/09/18 20:43 Interventions: ED Discharge Assessment Last Done: 09/09/18 20:43 Instructions: Laparoscopy Activity Restrictions/Additional Instructions: Try taking Tylenol or Advil as needed for pain. Wean yourself from the narcotic pain medications as soon as possible. Rest and drink plenty of water. You should be up, walking and stretching. However do not over exert yourself. If you are having ongoing excessive pain contact your surgeon. Return here for increasing pain or fever. Prescriptions: No Action fluoxetine 20 MG capsule 20 mg PO QDAY Qty: 90 RF: 3 sennosides [senna] 8.6 mg Tablet 8.6 mg PO BEDTIME Qty: 10 RF: 1 docusate sodium 100 mg Capsule 100 mg PO BID Qty: 20 RF: 0 oxycodone 5 mg Tablet 5 mg PO Q3HR PRN (Reason: Pain, Moderate (4-6)) Qty: 30 RF: 0 Referrals: Karl Benitez MD [Primary Care Provider] - John Naranjo MD [Physician] -
[2018-09-09 18:22] LABS: Prothrombin Time 11.3 SECONDS (10.1-12.7)
[2018-09-09 18:25] LABS: Add Manual Diff / Slide Review NO; Alanine Aminotransferase 42 IU/L (21-72); Albumin 4.2 g/dL (3.5-5.0); Albumin Globulin Ratio 1.2 (1.0-2.8); Alkaline Phosphatase 61 U/L (38-126); Aspartate Aminotransferase 28 IU/L (17-59); BUN Creatinine Ratio 16.7 (6-22); Basophils Absolute Auto 0 /uL (0-100); Basophils Percent Auto 0.1 % (0-2); Bilirubin Total 0.3 mg/dL (0.2-1.3); Blood Urea Nitrogen 15 mg/dL (9-20); Calcium 9.2 mg/dL (8.4-10.2); Carbon Dioxide 29 mmol/L (22-32); Chloride 101 mmol/L (98-107); Eosinophils Absolute Auto 200 /uL (0-450); Eosinophils Percent Auto 2.3 % (2-4); Estimated Glomerular Filt Rate > 60.0 mL/min (>60); Globulin 3.4 g/dL (1.7-4.1); Glucose 99 mg/dL (70-100); HEMOLYSIS < 15 (0-50); Hematocrit 44.2 % (41-53); Hemoglobin 14.9 g/dL (13.5-17.5); Lactate (Lactic Acid) 0.9 mmol/L (0.7-2.1); Lipase 32 U/L (23-300); Lymphocytes Absolute Auto 1400 /uL (1100-4500); Lymphocytes Percent Auto 18.5 % (25-40); Mean Corpuscular HGB Conc 33.7 % (30-36); Mean Corpuscular Hemoglobin 29.2 PG (26-34); Mean Corpuscular Volume 86.4 fL (80-100); Monocytes Absolute Auto 600 /uL (0-900); Monocytes Percent Auto 7.9 % (3-14); Neutrophils Absolute Auto 5400 /uL (1500-7000); Neutrophils Percent Auto 71.2 % (50-75); PTT Partial Thromboplastin Tim 31 SECONDS (26.4-36.2); Platelet Count 195 X10^3/uL (150-400); Potassium 4.1 mmol/L (3.4-5.1); Red Blood Cell Count 5.11 X10^6/uL (4.5-5.9); Sodium 139 mmol/L (137-145); Total Protein 7.6 g/dL (6.3-8.2); White Blood Cell Count 7.6 X10^3/uL (4.5-11.0)
[2018-09-09] MEDS: SODIUM CHLORIDE 0.9% 1,000 ML 1000 ML IV (18:50)
[2018-09-09] MEDS: KETOROLAC 60 MG/2 ML VIAL 30 MG IV (19:45)
[2018-09-09 20:00] VITALS: BP 120/72; PULSE 56; O2SAT 95
[2018-09-09 20:43] VITALS: BP 129/72; PULSE 61; RESP 16; O2SAT 98
== END 2018-09-09 20:43 | disposition home or self-care (01) ==
PROVIDERS: Emergency Provider Emergency Medicine; PCP Family Medicine
DX: R10.9 Unspecified abdominal pain (principal); G89.18 Other acute postprocedural pain
CPT/HCPCS: 36591; 80053; 81003; 83605; 83690; 85025; 85610; 85730; 93005; 96374; 99282; 99284; J1885